=== PATIENT | male | born 1985 | race Caucasian/White ===

== ENCOUNTER 2022-09-10 03:20 | Emergency (ER) | payer MEDICAID ==
[~2022-09-10] VITALS: Ht 162.6 cm; Wt 64.1 kg
[2022-09-10 03:33] VITALS: BP 121/91
[2022-09-10] MEDS ORDERED: ondansetron 4mg rapidly disintigrating tab PO ONE (04:05)
[2022-09-10] MEDS ORDERED: amoxicillin 250mg capsule PO ONE (04:05)
[2022-09-10] MEDS ORDERED: AMOX500C2 PO (04:06)
== END 2022-09-10 04:25 | disposition home or self-care (01) ==
LOC: ER 03:22
DX: K04.7 Periapical abscess without sinus (principal)
CPT/HCPCS: 41800; 99284